=== PATIENT | female | born 1980 | race Caucasian/White ===

== ENCOUNTER 2017-06-24 20:42 | Emergency (ER) | payer MEDICAID ==
[~2017-06-24 20:42] MED LIST: APAP/HYDROCODON1 T13 PO
[2017-06-24 23:28] VITALS: BP 116/87
== END 2017-06-24 23:28 | disposition home or self-care (01) ==
LOC: ED 20:42
DX: G44.209 Tension-type headache, unspecified, not intractable (principal)
CPT/HCPCS: J1885

== ENCOUNTER 2019-04-02 13:06 | Emergency (ER) | payer MEDICAID ==
[~2019-04-02] VITALS: Ht 157.5 cm; Wt 72.2 kg
[2019-04-02 14:37] VITALS: Ht 157.5 cm; Wt 72.2 kg
[2019-04-02 15:59] LABS: BASOPHIL % 0.3 % (0-2); PLATELET COUNT 262 x10^3mcL (130-400); RED CELL DISTRIBUTION WIDTH 14.5 % (11.5-14.5)
[2019-04-02 16:05] LABS: CALCIUM 8.3 mg/dL (8.5-10.1); CARBON DIOXIDE 27.5 mmol/L (21-32); CHLORIDE SERUM 103 mmol/L (98-107); CREATININE SERUM 0.6 mg/dL (0.6-1.0); GFR1 > 60 mL/min; GLUCOSE SERUM 92 mg/dL (74-106); POTASSIUM SERUM 3.6 mmol/L (3.5-5.1); SODIUM SERUM 139 mmol/L (136-145)
[2019-04-02 16:10] LABS: AST/SGOT 42 U/L (15-37); BILIRUBIN TOTAL 0.2 mg/dL (0.20-1.00)
[2019-04-02 16:11] LABS: ALBUMIN 3.6 g/dL (3.4-5.0); ALKALINE PHOSPHATASE 65 U/L (46-116); ALT/SGPT 62 U/L (14-59); AMYLASE 82 U/L (25-115); LIPASE 115 IU/L (73-393); TOTAL PROTEIN, SERUM 7.7 g/dL (6.4-8.2)
[2019-04-02 18:45] VITALS: BP 110/71
== END 2019-04-02 18:45 | disposition home or self-care (01) ==
LOC: ED 13:06
PROVIDERS: Student in an Organized Health Care Education/Training Program
DX: R10.84 Generalized abdominal pain (principal); R11.2 Nausea with vomiting, unspecified; R50.9 Fever, unspecified; Z90.49 Acquired absence of other specified parts of digestive tract
CPT/HCPCS: J1885; J2405; J7030

== ENCOUNTER 2019-05-21 17:26 | Emergency (ER) | payer MEDICAID ==
[~2019-05-21] VITALS: Ht 160 cm; Wt 70.8 kg
[2019-05-21 17:47] VITALS: Ht 160 cm; Wt 70.8 kg
[2019-05-21 19:42] VITALS: BP 109/58
== END 2019-05-21 19:42 | disposition home or self-care (01) ==
LOC: ED 17:26
DX: J40 Bronchitis, not specified as acute or chronic (principal); M54.6 Pain in thoracic spine; Z90.49 Acquired absence of other specified parts of digestive tract
CPT/HCPCS: J1100; J1885; Q0092

== ENCOUNTER 2019-07-05 21:22 | Emergency (ER) | payer SELFPAY ==
[~2019-07-05] VITALS: Ht 162.6 cm; Wt 75.0 kg
[2019-07-05 21:29] VITALS: BP 106/70; Ht 162.6 cm; Wt 75.0 kg
== END 2019-07-05 23:05 | disposition home or self-care (01) ==
LOC: ED 21:22
DX: S80.12XA Contusion of left lower leg, initial encounter (principal); Z90.49 Acquired absence of other specified parts of digestive tract; X58.XXXA Exposure to other specified factors, initial encounter; Y93.89 Activity, other specified; Y92.89 Other specified places as the place of occurrence of the external cause; Y99.8 Other external cause status
CPT/HCPCS: J1885